=== PATIENT | male | born 1975 | race Caucasian/White ===

== ENCOUNTER 2023-09-12 11:37 | Emergency (ER) | payer BC ==
[~2023-09-12] VITALS: Ht 182.9 cm; Wt 158.8 kg
[2023-09-12 12:00] VITALS: BP_SYST 135; PULSE 74; RESP 18; TEMP 97.1; O2SAT 98
[2023-09-12 13:14] LABS: COVID19 ANTIGEN SOFIA FIA NEGATIVE (NEGATIVE); INFLUENZA TYPE A Negative (NEGATIVE); INFLUENZA TYPE B NEGATIVE (NEGATIVE)
[2023-09-12 13:41] VITALS: BP_SYST 126; PULSE 62; RESP 18; TEMP 97.1; O2SAT 98
== END 2023-09-12 13:41 | disposition home or self-care (01) ==
LOC: SED 11:37
DX: B34.9 Viral infection, unspecified (principal); R05.9 Cough, unspecified; R09.81 Nasal congestion; J34.89 Other specified disorders of nose and nasal sinuses; Z79.899 Other long term (current) drug therapy; Z20.822 Contact with and (suspected) exposure to COVID-19
CPT/HCPCS: 36415; 99283